=== PATIENT | female | born 1995 | race Caucasian/White ===

== ENCOUNTER 2016-12-01 19:08 | Emergency (ER) | payer OTHER ==
[2016-12-01 19:27] VITALS: BMI 32.4
[2016-12-01 19:31] LABS: URINE APPEARANCE SLCLOUDY; URINE BILIRUBIN NEGATIVE (NEGATIVE); URINE BLOOD NEGATIVE (NEGATIVE); URINE COLOR YELLOW; URINE GLUCOSE (UA) NEGATIVE (NEGATIVE); URINE KETONE NEGATIVE (NEGATIVE); URINE NITRITE NEGATIVE (NEGATIVE); URINE UROBILINOGEN NEGATIVE E.U./dl (0.2-1.0)
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
--- NOTE | 2016-12-01 19:49 | PDOC ---
*Physical Exam - Vital Signs Last Vital Signs Temp Pulse Resp BP Pulse Ox 98.1 F 113 H 16 131/78 99 12/01/16 19:21 12/01/16 19:21 12/01/16 19:21 12/01/16 19:21 12/01/16 19:21 ED Treatment Course - LABORATORY CBC & Chemistry Diagram: 12/01/16 19:50 12/01/16 19:50 - ADDITIONAL ORDERS Additional order review: Laboratory Results 12/01/16 19:17 Urine HCG, Qual Negative Medical Decision Making - Medical Decision Making 12/01/16 19:49 agree with care from DOMENICO Lerma *DC/Admit/Observation/Transfer Diagnosis at time of Disposition: Urinary tract infection - Discharge Dispostion Disposition: HOME Condition at time of disposition: Stable - Prescriptions Prescriptions: Cefdinir [Omnicef -] 300 mg PO BID #20 capsule - Referrals Referrals: Anshu Catalan MD [Staff Physician] - Sarah Montoya [Primary Care Provider] - - Patient Instructions Printed Discharge Instructions: DI for Urinary Tract Infection (UTI) Additional Instructions: Please take medication as prescribed and complete the entire course of antibiotics. Please follow up with your primary care doctor within the next 3- 5 days. You have been provided a referral to see a urologist for further evaluation of your recurrent UTIs. If your symptoms persist or worsen, or if you develop a high fever, nausea, vomiting, diarrhea, please return to the ER.
[2016-12-01 19:59] LABS: URINE LEUK ESTERASE 3+ (NEGATIVE); URINE PROTEIN 1+ (NEGATIVE)
[2016-12-01 20:01] LABS: URINE BACTERIA FEW /hpf (NONE SEEN); URINE HYALINE CAST 1 /lpf; URINE MUCUS RARE; URINE RBC 6 /hpf (0-3); URINE WBC 283 /hpf (3-5)
[2016-12-01 20:04] LABS: BASOPHIL 0.8 % (0-2.0); EOSINOPHIL 0.7 % (0-4.5); MCH 30.5 pg (25.7-33.7); MCHC 33.8 g/dl (32.0-36.0); MEAN CELL VOLUME 90.1 fl (80-96); MEAN PLT VOLUME 11.2 fl (7.5-11.1); NEUTROPHILS 68.9 % (42.8-82.8); PLATELET COUNT 302 K/MM3 (134-434); RDW 12.8 % (11.6-15.6); WHITE BLOOD COUNT 8.8 K/mm3 (4.0-10.0)
[2016-12-01 20:23] LABS: ALBUMIN 4.3 g/dl (3.4-5.0); ANION GAP 9 (8-16); BILIRUBIN,TOTAL 0.4 mg/dL (0.2-1.0); CALCIUM 9.8 mg/dL (8.5-10.1); CO2 26 mmol/L (21-32); CREATININE 0.7 mg/dL (0.55-1.02); GLUCOSE,RANDOM 120 mg/dL (74-106); SGOT/AST 17 U/L (15-37); SGPT/ALT 31 U/L (12-78); TOT PROT 9.1 g/dl (6.4-8.2)
[2016-12-01 20:24] LABS: ALK PHOS 80 U/L (45-117)
[2016-12-01 23:13] VITALS: BP 123/66; PULSE 93; TEMP 98.9
== END 2016-12-01 23:13 | disposition home or self-care (01) ==
LOC: JER 19:08
DX: N39.0 Urinary tract infection, site not specified (principal); Z87.440 Personal history of urinary (tract) infections
CPT/HCPCS: 36415; 76775-TC; 80053; 81003; 81015; 84703; 85025; 87086; 87186; 99282-25